=== PATIENT | male | born 1960 | race Caucasian/White ===

== ENCOUNTER 2016-09-21 09:44 | Day surgery (SDC) | payer OTHER ==
[~2016-09-21 09:44] MED LIST: RINGERS SOLUTION,LACTATED 1,000 ML IV PRN
[2016-09-21] MEDS ORDERED: RINGERS SOLUTION,LACTATED 1,000 ML IV ONE (10:25)
[2016-09-21] MEDS ORDERED: RINGERS SOLUTION,LACTATED 1,000 ML IV PRN (12:20)
[2016-09-21 12:21] VITALS: BP 143/83
--- NOTE | 2016-09-21 19:22 | OR ---
Operative Report - Dictated Report Narrative: Operative Report Date of operation: 09/21/2016 Preoperative diagnosis: Weight loss. Heme positive stool. No recent dedicated colon studies. History of abnormal EGDs Postoperative diagnosis: Hiatal hernia with esophagitis. Gastropathy ( pathology and CLOtest pending). Normal colonoscopy Operation: EGD with biopsies. Colonoscopy Surgeon: Dr Spears Anesthesia: TY FARIAS CRNA Indications for procedure: The patient is a 55-year-old male referred by Dr. Holbrook. He has had significant weight loss recently. The patient's last colonoscopy was in 2003. He has had some bright red blood on the tissue paper and had a heme positive stool. He has a history of multiple abnormal EGDs with ulcerations, healing ulcerations, and gastropathy in the past. Findings: Hiatal hernia with inflammation at the GE junction. Gastropathy ( pathology CLOtest pending). Normal duodenum. Redundant colon, otherwise normal exam to the cecum. Mildly engorged anal canal veins. Narrative of procedure: The patient was identified preoperatively, and prior to the administration of anesthetic a multidisciplinary timeout was observed EGD: With the patient in the recumbent position, a bite-block was placed, intravenous sedation was administered, and the patient's eyes covered with a towel. The flexible fiberoptic gastroscope was advanced into the posterior pharynx which appeared normal. The supraglottic larynx appeared normal. The cords appeared normal, moved well, and opposed in the midline. The scope was advanced under direct vision into the proximal esophagus which appeared normal. The esophagus appeared freely distensible with normal mucosa. The esophageal mucosa appeared normal down to the gastroesophageal junction which was inflamed. The GE junction appeared normally distensible. There was a sliding hiatal hernia. The scope was advanced into the stomach proper which was insufflated with air. Immediately apparent was pending gastric erythema with several areas of submucosal hemorrhage and friability. A retroflexed view of the gastric fundus confirmed the pain gastric nature of erythema but revealed no additional lesions. It confirmed a small sliding hiatal hernia. Scope was redirected toward the pylorus. The pylorus appeared patent with some very small adjacent petechial hemorrhages. The scope was advanced into the duodenal bulb which appeared normal. The scope was advanced further to the horizontal portion of the duodenum which appeared normal, specifically the villous architecture appeared well preserved and clear bile was present. The scope was slowly withdrawn through the duodenal bulb with confirmation that no active ulcer was present. The scope was withdrawn into the stomach and chain sales representative biopsies of gastric mucosa obtained for CLOtest and pathology. The biopsy sites were seen to be hemostatic. The insufflated air was removed from the stomach, and the scope withdrawn to just above the GE junction which was biopsied. The area appeared hemostatic. The scope was then withdrawn from the patient, and this portion of the procedure terminated. COLONOSCOPY: The patient was then placed in the left lateral position, and the perineum was inspected. There was no evidence of pilonidal disease or skin breakdown. The external appearance of the anus was normal. Sphincter tone was good. The flexible fiberoptic colonoscope was inserted into the rectum which was insufflated with air. The rectal mucosa and submucosal vascular pattern appeared normal, the prep was seen to be complete. The scope was then withdrawn and readvanced through the anal canal which demonstrated some engorgement of canal veins but no signs of fissure or active hemorrhage/ thrombosis. The scope was then advanced proximally through the sigmoid colon, up the descending colon, and around the splenic flexure where the triangular haustral architecture of the transverse colon was seen. The scope was advanced across the transverse colon, around the hepatic flexure to the cecum, where the confluence of tenia and the ileocecal valve were identified. The mucosa at this level appeared normal. The scope was then slowly withdrawn in a circular fashion so that all aspects of colonic mucosa were inspected. The colon was relatively normal in caliber but very redundant in course. The haustral architecture appeared well preserved throughout with no evidence of external compression. The mucosa and submucosal vascular pattern appeared normal, specifically there was no gross evidence to suggest colitis or inflammatory bowel disease and no AV malformations were seen. No diverticulosis was demonstrated. No polyps were encountered. The scope was gradually withdrawn to the level of the rectum. As much insufflated air as possible was removed. The scope was withdrawn from the patient and the procedure terminated. The patient tolerated the anesthetic and procedure well without complication and was transferred back to the ambulatory surgery area awake and in stable condition. The patient remained stable throughout a period of postoperative observation. He denied abdominal discomfort, was able to tolerate by mouth intake, and was up without assistance. I shared the operative findings with the patient and he was given copies of the photographs which appear in the medical record. He was discharged home with instructions not to engage in hazardous activity today, but may resume normal activity tomorrow, and advance diet as tolerated. He is to continue those medications as listed in the history and physical exam. I made arrangements to contact him with the biopsy reports and will make additional recommendations for treatment and follow-up based upon those results. Reviewed and electronically signed
== END 2016-09-21 09:45 | disposition home or self-care (01) ==
LOC: AMB 09:44
PROVIDERS: ATTEND Surgery
PROC: 0DB68ZX Excision of Stomach, Via Natural or Artificial Opening Endoscopic, Diagnostic (ICD-10-PCS; principal; 2016-09-21 10:30)
PROC: 0DJD8ZZ Inspection of Lower Intestinal Tract, Via Natural or Artificial Opening Endoscopic (ICD-10-PCS; 2016-09-21 10:30)
DX: Z12.11 Encounter for screening for malignant neoplasm of colon (principal); K29.70 Gastritis, unspecified, without bleeding; K21.0 Gastro-esophageal reflux disease with esophagitis; K44.9 Diaphragmatic hernia without obstruction or gangrene; E78.5 Hyperlipidemia, unspecified; R63.4 Abnormal weight loss; Z68.24 Body mass index [BMI] 24.0-24.9, adult
CPT/HCPCS: 43239; 87081; 88305; 88312; 88313; G0121